=== PATIENT | male | born 1960 | race Caucasian/White ===

== ENCOUNTER 2017-01-01 00:39 | Emergency (ER) | payer MEDICARE ==
[~2017-01-01] VITALS: Ht 177.8 cm; Wt 74.4 kg
[~2017-01-01 00:39] MED LIST: ASPI-991 PO; CLIN300C97 PO; DIVA250T4 PO; METO25TA20 PO; Nitroglycerin SL; SIMV20TA2 PO
[2017-01-01 00:48] VITALS: BP 142/85
== END 2017-01-01 01:15 | disposition home or self-care (01) ==
LOC: ER 00:45
DX: L03.012 Cellulitis of left finger (principal); B19.20 Unspecified viral hepatitis C without hepatic coma; Z95.810 Presence of automatic (implantable) cardiac defibrillator; Z88.2 Allergy status to sulfonamides; Z79.82 Long term (current) use of aspirin
CPT/HCPCS: A4606; A6402; A6403; Z7610

== ENCOUNTER 2017-03-04 03:51 | Emergency (ER) | payer MEDICARE ==
[~2017-03-04] VITALS: Ht 177.8 cm; Wt 72.6 kg
[2017-03-04 04:00] VITALS: BP 134/87
== END 2017-03-04 05:15 | disposition home or self-care (01) ==
LOC: ER 03:54
DX: S00.91XA Abrasion of unspecified part of head, initial encounter (principal); S09.90XA Unspecified injury of head, initial encounter; I10 Essential (primary) hypertension; B19.20 Unspecified viral hepatitis C without hepatic coma; L08.9 Local infection of the skin and subcutaneous tissue, unspecified; F31.9 Bipolar disorder, unspecified; Z95.0 Presence of cardiac pacemaker; Z79.82 Long term (current) use of aspirin; Z88.2 Allergy status to sulfonamides; V29.9XXA Motorcycle rider (driver) (passenger) injured in unspecified traffic accident, initial encounter; Y93.55 Activity, bike riding; Y92.89 Other specified places as the place of occurrence of the external cause; Y99.8 Other external cause status
CPT/HCPCS: A4606; A6402; Z7610

== ENCOUNTER 2017-10-04 17:30 | Emergency (ER) | payer MEDICARE ==
[~2017-10-04] VITALS: Ht 182.9 cm; Wt 90.7 kg
[2017-10-04 17:30] VITALS: BP 142/70
[~2017-10-04 17:30] MED LIST changes: +ASPI-1152 PO; -ASPI-991 PO; +CLIN300C11 PO; -CLIN300C97 PO
[2017-10-04] MEDS ORDERED: TRAMADOL HCL 50 MG TABLET ONE (17:59)
[2017-10-04] MEDS ORDERED: TRAMADOL HCL 50 MG TABLET PO ONE (18:00)
== END 2017-10-04 19:27 | disposition home or self-care (01) ==
LOC: ER 17:33
DX: M54.5 Low back pain (principal); I10 Essential (primary) hypertension; B19.20 Unspecified viral hepatitis C without hepatic coma; F31.9 Bipolar disorder, unspecified; Z95.0 Presence of cardiac pacemaker; Z88.2 Allergy status to sulfonamides; Z79.82 Long term (current) use of aspirin
CPT/HCPCS: 72131-TC; A4606; Z7610

== ENCOUNTER 2017-12-15 00:46 | Inpatient (IN) | payer MEDICARE ==
[~2017-12-15] VITALS: Ht 177.8 cm; Wt 80.3 kg
--- NOTE | 2017-12-15 03:28 | NUR ---
MS/RN NOTES RECEIVED DIRECT ADMISSION PT. FROM [place]. PT. IS AWAKE, ALERT AND ORIENTED X3. BREATHING EVEN AND UNLABORED ON ROOM AIR. NO SOB, RESPIRATORY DISTRESS NOTED AT THIS TIME. PT. COMPLAINING OF NON-RADIATING CHEST PAIN 3/10 WHEN BREATHING. WILL NOTIFY MD AND ADMINISTER MEDICATION ORDERED. VITAL SIGNS STABLE. ORIENTED PT. TO ROOM. PT. WITH LEFT FOREARM 20 GAUGE IV SALINE LOCK PRESENT, PATENT AND INTACT. PT. WITH RIGHT WRIST 20 GAUGE IV SALINE LOCK PRESENT, PATENT AND INTACT. AWAITING ADMISSION ORDERS. BED LOCKED AND IN LOWEST POSITION, SIDE RAILS UP X2, CALL LIGHT WITHIN REACH, WILL CONTINUE TO MONITOR.
--- NOTE | 2017-12-15 04:00 | NUR ---
MS/RN NOTES PT. IS REFUSING FULL BODY CHECK AT THIS TIME STATING " I HAVE NO WOUNDS, IM FINE I JUST WANT TO SLEEP". PT. ALSO REFUSING TO GO THROUGH BELONGINGS OR SIGN BELONGINGS LIST. WILL CONTINUE TO MONITOR.
--- NOTE | 2017-12-15 04:05 | NUR ---
MS/RN NOTES NOTIFIED [employer] FUNDRAISING DIRECTOR RN FORENSIC IVAN PT. COMPLAINING OF CHEST PAIN 3/10 WHEN BREATHING. PER RN FORENSIC IVAN "PT. IS HAVING PAIN DUE TO PNA, I WILL PUT IN ADMITTING ORDERS". WILL CONTINUE TO MONITOR.
[2017-12-15] MEDS ORDERED: IV NS 0.9% 1,000 ML IV PRN (04:11)
[2017-12-15 04:30] VITALS: BP 114/75
[2017-12-15] MEDS ORDERED: MAG HYDROX/AL HYDROX/SIMETH 30 ML UDC PO PRN (04:30)
[2017-12-15] MEDS ORDERED: ZOLPIDEM TARTRATE 5 MG TABLET PO PRN (04:30)
[2017-12-15] MEDS ORDERED: MAGNESIUM HYDROXIDE 30 ML UDC PO PRN (04:30)
[2017-12-15] MEDS ORDERED: ACETAMINOPHEN 325 MG TABLET PO PRN (04:30)
[2017-12-15] MEDS ORDERED: ONDANSETRON HCL/PF 4 MG/2 ML VIAL IVP PRN (04:30)
--- NOTE | 2017-12-15 06:46 | NUR ---
MS/RN NOTES PT. IS LYING IN BED RESTING. BREATHING EVEN AND UNLABORED ON ROOM AIR. NO SOB, RESPIRATORY DISTRESS OR COMPLAINTS OF PAIN NOTED AT THIS TIME. PT. WITH LEFT FOREARM 20 GAUGE IV SALINE LOCK PRESENT, PATENT AND INTACT. PT. WITH RIGHT WRIST 20 GAUGE IV SALINE LOCK PRESENT, PATENT AND INTACT. ALL PT. NEEDS MET. BED LOCKED AND IN LOWEST POSITION, SIDE RAILS UP X2, CALL LIGHT WITHIN REACH, WILL ENDORSE TO DAYSHIFT NURSE FOR CONTINUITY OF CARE.
--- NOTE | 2017-12-15 07:15 | NUR ---
RN NOTES PT IS SITTING UP IN BED, RESTING COMFORTABLY. PT ON RA, RESPIRATIONS ARE EVEN AND UNLABORED. IV ON LFA INTACT AND PATENT. SAFETY MEASURES ARE IN PLACE, CALL LIGHT IS IN REACH. WILL CONTINUE TO MONITOR.
[2017-12-15 07:17] LABS: BASOPHILS % (AUTO) 0.2 % (0.0-2.0); EOSINOPHILS # (AUTO) 0.2 /CMM (0.0-0.7); EOSINOPHILS % (AUTO) 3.5 % (0.0-6.0); HEMATOCRIT 34 % (39-51); HEMOGLOBIN 11.7 g/dL (13.5-17.5); LYMPHOCYTES # (AUTO) 0.4 /CMM (0.8-4.8); LYMPHOCYTES % (AUTO) 7.2 % (20.0-44.0); MEAN CORPUSCULAR HEMOGLOBIN 27 PG (26.0-33.0); MEAN CORPUSCULAR HGB CONC 34 g/dl (31.0-36.0); MEAN CORPUSCULAR VOLUME 78 fL (80-96); MONOCYTES # (AUTO) 0.2 /CMM (0.1-1.30); MONOCYTES % (AUTO) 4.4 % (2.0-12.0); NEUTROPHILS # (AUTO) 4.7 /CMM (1.8-8.9); NEUTROPHILS % (AUTO) 84.7 % (43.0-81.0); PLATELET COUNT (AUTO) 249 /CMM (150-450); RDW COEFFICIENT OF VARIATION 13.2 (11.5-15.0); WHITE BLOOD COUNT (AUTO) 5.6 K/uL (4.3-11.0)
[2017-12-15 07:24] LABS: CALCIUM, SERUM 7.7 mg/dL (8.5-10.1); CREATININE 0.8 mg/dL (0.6-1.3); MAGNESIUM 1.7 mg/dL (1.8-2.4); PHOSPHORUS 3.9 mg/dL (2.5-4.9)
[2017-12-15] MEDS: PANTOPRAZOLE 40 MG TABLET.DR PO SCH (07:30)
[2017-12-15 08:00] VITALS: BP 110/62
[2017-12-15 08:18] VITALS: BP 110/62
[2017-12-15] MEDS ORDERED: AZITHROMYCIN 500 MG in IV D5W 250 ML IV SCH ×2 (09:00→23:00)
[2017-12-15] MEDS ORDERED: BUPR8TAB4 SL (09:19)
[2017-12-15] MEDS: CARVEDILOL 6.25 MG TABLET PO SCH ×2 (09:28→21:00)
[2017-12-15] MEDS: ASPIRIN 81 MG TAB.CHEW PO SCH (09:28)
[2017-12-15] MEDS: Magnesium 1GM/D5W 100ML PREMIX 100 ML IV SCH ×2 (09:28→10:26)
[2017-12-15] MEDS ORDERED: CEFTRIAXONE 1 G in IV NS 0.9% 50 ML IV SCH ×2 (10:00→22:00)
[2017-12-15] MEDS ORDERED: NITROGLYCERIN 0.4 MG/TAB BOTTLE SL PRN (10:00)
[2017-12-15] MEDS: DIVALPROEX SODIUM 250 MG TABLET.DR PO SCH (10:17)
[2017-12-15 10:36] LABS: IRON, SERUM 25 ug/dl (50-175); TOTAL IRON BINDING CAPACITY 229 ug/dl (250-450)
[2017-12-15 10:41] LABS: TROPONIN I < 0.017 ng/mL (0.00-0.056)
[2017-12-15 10:50] LABS: FERRITIN 254 ng/mL (8-388); THYROID STIMULATING HORMONE 1.106 uIU/mL (0.358-3.74)
[2017-12-15] MEDS: HYDROCODONE/APAP 5/325MG 1 EACH TABLET PO PRN (13:43)
--- NOTE | 2017-12-15 15:40 | NUR ---
RN NOTES [employer] CAME TO CHECK PACEMAKER DEVICE ON PT. WRONG COMPANY FOR DEVICE. WAS INSTRUCTED TO PLACE PT ON TELE MONITOR AND PLACE MAGNET ON DEVICE FROM ICU TO CHECK RATE IN ORDER TO FIND OUT WHICH COMPANY IS RESPONSIBLE FOR THE PACEMAKER. [email or web address] STATED SHE WOULD INFORM DR. CRABTREE. DR. CEE INFORMED BY RN.
[2017-12-15 16:00] VITALS: BP 103/68
--- NOTE | 2017-12-15 16:15 | NUR ---
RN NOTES PT PACEMAKER WAS CHECKED WITH PACEMAKER MAGNET. WITH MAGNET PLACED ON PT, RATE IS 100.
[2017-12-15] MEDS: oxyCODONE IR immediate release 5 MG PO PRN (18:34)
--- NOTE | 2017-12-15 18:48 | NUR ---
RN NOTES PT IS LAYING DOWN IN BED, RESTING COMFORTABLY. PT ON RA, RESPIRATIONS ARE EVEN AND UNLABORED. IV ON RFA INTACT AND SL, PT DOES NOT WANT TO BE CONNECTED TO FLUIDS AT THIS TIME. OXY IR GIVEN FOR PAIN MANAGEMENT. SAFETY MEASURES ARE IN PLACE, CALL LIGHT IS IN REACH. WILL ENDORSE TO MACHINE MOVER RN FOR CONTINUITY OF CARE.
--- NOTE | 2017-12-15 19:25 | NUR ---
RN NOTES RECEIVED PT ASLEEP, HOB ELEVATED, ON ROOM AIR AND TOLERATED WELL . PT APPEARS COMFORTABLE IN BED, NO SIGNS OF DISTRESS AND DISCOMFORT NOTED. IV ACCESS ON RIGHT FOREARM INTACT, DISCONNECTED TI IVF PER REPORT PT IS REFUSED. SAFETY MEASURES AND FALL PRECAUTION IN PLACE. WILL CONTINUE TO MONITOR PT.
[2017-12-15 20:00] VITALS: BP 91/56
[2017-12-15 22:00] VITALS: BP 97/56
[2017-12-15] MEDS ORDERED: SIMVASTATIN 20 MG TABLET PO SCH (22:00)
[2017-12-16] MEDS: oxyCODONE IR immediate release 5 MG PO PRN (03:38)
--- NOTE | 2017-12-16 06:20 | NUR ---
RN NOTES PT SLEPT WELL OVERNIGHT, VITAL SIGNS STABLE, AFEBRILE, ON ROOM AIR AND TOLERATED WELL. CURRENT DIET TOLERATED WELL, NO EPISODE OF NAUSEA AND VOMITING. KEPT PAIN AT TOLERABLE LEVEL. ALL NEEDS ATTENDED. SAFETY MEASURES AND FALL PRECAUTION OBSERVED. WILL ENDORSE TO MORNING RN FOR CONTINUITY OF CARE.
--- NOTE | 2017-12-16 07:30 | NUR ---
PT RECEIVED RESTING COMFORTABLY IN BED. NO S/S OR C/O PAIN OR DISTRESS NOTED. SIDE RAILS UP X2, CALL LIGHT LEFT WITHIN REACH. WILL CONTINUE PLAN OF CARE.
[2017-12-16 08:00] VITALS: BP 112/57
[2017-12-16] MEDS ORDERED: ASPIRIN EC 81 MG TABLET.DR PO SCH (09:00)
[2017-12-16] MEDS: ASPIRIN 81 MG TAB.CHEW PO SCH (09:18)
[2017-12-16] MEDS: PANTOPRAZOLE 40 MG TABLET.DR PO SCH (09:18)
[2017-12-16] MEDS: DIVALPROEX SODIUM 250 MG TABLET.DR PO SCH (09:18)
[2017-12-16 09:19] VITALS: BP 112/57
[2017-12-16] MEDS: CARVEDILOL 6.25 MG TABLET PO SCH (09:19)
[2017-12-16] MEDS: HYDROCODONE/APAP 5/325MG 1 EACH TABLET PO PRN (09:19)
--- NOTE | 2017-12-16 12:55 | NUR ---
AT BEDSIDE DR DESIR
--- NOTE | 2017-12-16 12:58 | NUR ---
CALLED DR CEE NOTIFIED OF PSYCH CLEARANCE.
--- NOTE | 2017-12-16 13:00 | NUR ---
AMA PT STATES HE WANTS TO LEAVE THE HOSPITAL AGAINST MEDICAL ADVICE (AMA). PATIENT ENCOURAGED TO STAY FOR FURTHER TREATMENT/STABILIZATION. DR CEE NOTIFIED OF PATIENT'S WISHES. PATIENT ADVISED OF RISKS AND BENEFITS OF LEAVING AMA. PATIENT VERBALIZED UNDERSTANDING. PATIENT ENCOURAGED TO RETURN TO ER IF SYMPTOMS DO NOT IMPROVE OR WORSEN.
[2017-12-16] MEDS ORDERED: LACTOBACILLUS RHAMNOSUS GG 1 EACH CAP.SPRINK PO SCH (17:00)
== END 2017-12-16 13:00 | disposition left against medical advice (07) | DRG 871 ==
LOC: TELE 03:26 → MED 06:23
PROVIDERS: ADMIT Nurse Practitioner Acute Care; ATTEND Nurse Practitioner Acute Care
DX: A41.9 Sepsis, unspecified organism (principal); J15.9 Unspecified bacterial pneumonia; F11.20 Opioid dependence, uncomplicated; E83.42 Hypomagnesemia; E78.5 Hyperlipidemia, unspecified; D63.8 Anemia in other chronic diseases classified elsewhere; I25.10 Atherosclerotic heart disease of native coronary artery without angina pectoris; Z95.810 Presence of automatic (implantable) cardiac defibrillator; F17.210 Nicotine dependence, cigarettes, uncomplicated; F19.11 Other psychoactive substance abuse, in remission; R55 Syncope and collapse; F39 Unspecified mood [affective] disorder
CPT/HCPCS: 36415; 80048-TC; 80061-TC; 82306; 82728-TC; 83540-TC; 83735-TC; 84100-TC; 84439-TC; 84443-TC; 84484-TC; 85025-TC; 87081-TC; 93307-TC; A4216; J0456; J0696; J3475; J7030; J7060; Z7610

== ENCOUNTER 2018-02-02 00:02 | Emergency (ER) | payer MEDICARE ==
[~2018-02-02] VITALS: Ht 172.7 cm; Wt 74.8 kg
[~2018-02-02 00:02] MED LIST changes: +BUPR8TAB4 SL; -CLIN300C11 PO
[2018-02-02 01:05] VITALS: BP 127/57
[2018-02-02] MEDS ORDERED: KETOROLAC TROMETHAMINE INJ 60 MG/2 ML VIAL IM ONE (01:35)
[2018-02-02] MEDS ORDERED: CYCLOBENZAPRINE 10 MG TABLET ONE (01:36)
[2018-02-02] MEDS ORDERED: GABAPENTIN 100 MG CAPSULE ONE ×2 (01:36→01:40)
[2018-02-02] MEDS: CYCLOBENZAPRINE 10 MG TABLET PO ONE (01:44)
[2018-02-02] MEDS: KETOROLAC TROMETHAMINE INJ 60 MG/2 ML VIAL IM ONE (01:44)
[2018-02-02] MEDS: GABAPENTIN 100 MG CAPSULE PO ONE (01:44)
[2018-02-02] MEDS ORDERED: ONDANSETRON 4 MG TAB.RAPDIS ONE (03:02)
[2018-02-02] MEDS ORDERED: oxyCODONE/APAP (5/325 MG) 1 UDTAB TABLET ONE (03:02)
[2018-02-02] MEDS: ONDANSETRON 4 MG TAB.RAPDIS SL ONE (03:08)
[2018-02-02] MEDS: oxyCODONE/APAP (5/325 MG) 1 UDTAB TABLET PO ONE (03:12)
--- NOTE | 2018-02-02 03:13 | NUR ---
X2 5/325 PERCOCET GIVEN. POPCORN ATTENDANT MADE AWARE THAT X1 MORE NEEDED PER MD HALEY ORDER.
[2018-02-02] MEDS: oxyCODONE/APAP (5/325 MG) 1 UDTAB TABLET ONE (03:22)
== END 2018-02-02 05:05 | disposition home or self-care (01) ==
LOC: ER 00:04
DX: G89.29 Other chronic pain (principal); M54.5 Low back pain; G40.909 Epilepsy, unspecified, not intractable, without status epilepticus; I10 Essential (primary) hypertension; F32.9 Major depressive disorder, single episode, unspecified; F41.9 Anxiety disorder, unspecified; Z86.19 Personal history of other infectious and parasitic diseases; Z95.0 Presence of cardiac pacemaker; Z88.2 Allergy status to sulfonamides; Z79.82 Long term (current) use of aspirin
CPT/HCPCS: 72131-TC; A4606; J1885; Q0162; Z7610

== ENCOUNTER 2018-02-24 17:05 | Emergency (ER) | payer MEDICARE ==
[~2018-02-24] VITALS: Ht 175.3 cm; Wt 74.8 kg
[2018-02-24] MEDS ORDERED: IV NS 0.9% 1,000 ML BAG IV ONE (17:30)
[2018-02-24] MEDS ORDERED: VANCOMYCIN 1 GM in IV D5W 250 ML IV ONE (17:30)
[2018-02-24] MEDS ORDERED: MORPHINE SULFATE INJ 2 MG/ML DISP.SYRIN IV ONE ×2 (17:30→20:00)
[2018-02-24] MEDS ORDERED: PIPERACILLIN /TAZOBACTAM 3.375 G in IV D5W 50 ML IV ONE (17:30)
[2018-02-24] MEDS ORDERED: ONDANSETRON HCL/PF 4 MG/2 ML VIAL IVP ONE (17:30)
--- NOTE | 2018-02-24 17:30 | NUR ---
PT CAME IN WITH C/O ABSCESS TO RUE x 1 WEEK. Hx OF IVDU. VSS. SEEN BY TANKAGE GRINDER FOR EVAL. SAFETY AND COMFORT MEASURES PROVIDED. WILL MONITOR.
[2018-02-24 17:47] LABS: BASOPHILS # (AUTO) 0.1 /CMM (0.0-0.2); BASOPHILS % (AUTO) 0.6 % (0.0-2.0); HEMATOCRIT 33 % (39-51); HEMOGLOBIN 11.3 g/dL (13.5-17.5); LYMPHOCYTES # (AUTO) 1.5 /CMM (0.8-4.8); LYMPHOCYTES % (AUTO) 16.6 % (20.0-44.0); MEAN CORPUSCULAR HGB CONC 34 g/dl (31.0-36.0); MEAN CORPUSCULAR VOLUME 76 fL (80-96); MONOCYTES # (AUTO) 0.7 /CMM (0.1-1.30); MONOCYTES % (AUTO) 8.2 % (2.0-12.0); NEUTROPHILS # (AUTO) 6.7 /CMM (1.8-8.9); NEUTROPHILS % (AUTO) 73.6 % (43.0-81.0); PLATELET COUNT (AUTO) 328 /CMM (150-450); RDW COEFFICIENT OF VARIATION 13.9 (11.5-15.0); RED BLOOD CELL COUNT(AUTO) 4.38 MIL/uL (4.5-6.0); WHITE BLOOD COUNT (AUTO) 9.1 K/uL (4.3-11.0)
[2018-02-24] MEDS ORDERED: MORPHINE SULFATE INJ 4 MG/ML DISP.SYRIN ONE ×2 (17:54→19:58)
[2018-02-24] MEDS ORDERED: ONDANSETRON HCL/PF 4 MG/2 ML VIAL ONE (17:54)
[2018-02-24] MEDS ORDERED: LIDOCAINE 1% INJ 50 ML MDV IJ ONE (18:00)
--- NOTE | 2018-02-24 18:00 | NUR ---
IV ACCESS STARTED. MEDICATED ORDERED.
[2018-02-24 18:08] LABS: INR 0.97 (0.85-1.15)
[2018-02-24] MEDS ORDERED: ASPI-1169 PO (18:08)
[2018-02-24] MEDS ORDERED: LIDOCAINE 2% 20 ML MDV ONE (18:19)
[2018-02-24 18:24] LABS: TROPONIN I < 0.017 ng/mL (0.00-0.056)
[2018-02-24 18:25] LABS: CALCIUM, SERUM 8.7 mg/dL (8.5-10.1); CARBON DIOXIDE 28 mmol/L (21-32); CHLORIDE 99 mmol/L (98-107); CREATININE 0.7 mg/dL (0.6-1.3); GLUCOSE 92 mg/dL (74-106); SODIUM SERUM 134 mmol/L (136-145); UREA NITROGEN, BLOOD 15 mg/dL (7-18)
[2018-02-24 18:30] LABS: ALANINE AMINOTRANSFERASE 49 U/L (12-78); ALBUMIN 3.1 g/dL (3.4-5.0); ALKALINE PHOSPHATASE 98 U/L (46-116); ASPARTATE AMINOTRANSFERASE 35 U/L (15-37); BILIRUBIN,DIRECT 0.1 mg/dL (0.0-0.2); BILIRUBIN,TOTAL 0.5 mg/dL (0.2-1.0)
--- NOTE | 2018-02-24 18:40 | NUR ---
PT UNABLE TO GIVE URINE SAMPLE.
--- NOTE | 2018-02-24 19:14 | NUR ---
GAS REFRIGERATOR SERVICER AT BS FOR WOUND PROCEDURE.
--- NOTE | 2018-02-24 19:34 | NUR ---
US TECH AT BS.
--- NOTE | 2018-02-24 19:45 | NUR ---
DRESSINGS APPLIED ON RUE.
--- NOTE | 2018-02-24 20:03 | NUR ---
IV removed. Catheter intact and site benign. Pressure and 4x4 applied to site. No bleeding noted.
--- NOTE | 2018-02-24 20:03 | NUR ---
Patient discharged to home in stable condition. Written and verbal after care instructions given. Patient verbalizes understanding of instruction.
[2018-02-24 20:04] VITALS: BP 136/85
== END 2018-02-24 20:05 | disposition home or self-care (01) ==
LOC: ER 17:11
DX: L02.413 Cutaneous abscess of right upper limb (principal); L03.113 Cellulitis of right upper limb; R11.2 Nausea with vomiting, unspecified; R56.9 Unspecified convulsions; I10 Essential (primary) hypertension; F41.9 Anxiety disorder, unspecified; F32.9 Major depressive disorder, single episode, unspecified; Z86.19 Personal history of other infectious and parasitic diseases; Z95.0 Presence of cardiac pacemaker; Z88.2 Allergy status to sulfonamides; Z79.82 Long term (current) use of aspirin
CPT/HCPCS: 10060; 36415; 71045; 80048; 80076; 83605; 84484; 85025; 85730; 87040 ×2; 87070; 87077; 93005; 93971; 96365; 96366; 96368; 96375; 96376; 99285; A4606; A6402; A6403; A6407; J2270 ×2; J2405; J2543; J3370; J3490; J7030; J7060 ×2; Z7610

== ENCOUNTER 2018-10-10 02:44 | Emergency (ER) | payer MEDICARE ==
[~2018-10-10] VITALS: Ht 177.8 cm; Wt 81.6 kg
[~2018-10-10 02:44] MED LIST changes: -ASPI-1152 PO; +ASPI-1169 PO; -BUPR8TAB4 SL; -METO25TA20 PO; -Nitroglycerin SL; -SIMV20TA2 PO
--- NOTE | 2018-10-10 03:07 | NUR ---
PT BIB HIS WITH A C/O FEVER AND "L5" BACK PAIN. PT IS ALSO C/O GENERALIZED BODY ACHES. PT DID NOT TAKE ANYTHING FOR THE FEVER OR FOR THE PAIN. PT'S AND DAUGHTER ARE AT THE BEDSIDE. PT WAS NOT ABLE TO WALK INTO THE ER. PT WAS TRIAGED AND TAKEN TO BED #11 VIA . PT IS ABLE TO MOVE BLE. PT APPEARS TIRED. PT HAS HIS BILATERAL LE CROSSED AT THE ANKLE.
--- NOTE | 2018-10-10 03:09 | NUR ---
DR. ADAM IS AT THE BEDSIDE.
[2018-10-10] MEDS ORDERED: HYDROCODONE/APAP 5/325MG 1 EACH TABLET ONE (03:15)
[2018-10-10] MEDS ORDERED: IBUPROFEN 600 MG TABLET PO ONE ×2 (03:16→03:30)
[2018-10-10 03:29] LABS: BASOPHILS # (AUTO) 0.1 /CMM (0.0-0.2); BASOPHILS % (AUTO) 0.4 % (0.0-2.0); EOSINOPHILS % (AUTO) 0.1 % (0.0-6.0); HEMATOCRIT 38 % (39-51); HEMOGLOBIN 12.9 g/dL (13.5-17.5); LYMPHOCYTES # (AUTO) 1.7 /CMM (0.8-4.8); LYMPHOCYTES % (AUTO) 11.7 % (20.0-44.0); MEAN CORPUSCULAR HGB CONC 34 g/dl (31.0-36.0); MEAN CORPUSCULAR VOLUME 78 fL (80-96); MONOCYTES # (AUTO) 1.1 /CMM (0.1-1.30); MONOCYTES % (AUTO) 7.7 % (2.0-12.0); NEUTROPHILS # (AUTO) 11.3 /CMM (1.8-8.9); NEUTROPHILS % (AUTO) 80.1 % (43.0-81.0); PLATELET COUNT (AUTO) 335 /CMM (150-450); WHITE BLOOD COUNT (AUTO) 14.2 K/uL (4.3-11.0)
[2018-10-10] MEDS ORDERED: IV NS 0.9% 1,000 ML BAG IV ONE ×2 (03:30→04:30)
[2018-10-10] MEDS ORDERED: HYDROCODONE/APAP 5/325MG 1 EACH TABLET PO ONE (03:30)
--- NOTE | 2018-10-10 03:30 | NUR ---
18G IV STARTED IN LT HAND. BLOOD DRAWN AND BLOOD CULTURES X 2 DRAWN AND SENT TO LAB. PT REC'D IVF ORDERED.
--- NOTE | 2018-10-10 03:44 | NUR ---
PT APPEARS TO BE SLEEPING SOUNDLY. NO S/S OF PAIN AT THIS TIME.
[2018-10-10 03:48] LABS: ALBUMIN 3.5 g/dL (3.4-5.0); BILIRUBIN,DIRECT 0.1 mg/dL (0.0-0.2); BILIRUBIN,TOTAL 0.6 mg/dL (0.2-1.0); CREATININE 0.8 mg/dL (0.6-1.3); POTASSIUM 3.7 mmol/L (3.5-5.1); TOTAL PROTEIN, SERUM 7.7 g/dL (6.4-8.2)
--- NOTE | 2018-10-10 04:00 | NUR ---
XRAY IN PROGRESS AT THE BEDSIDE.
--- NOTE | 2018-10-10 04:10 | NUR ---
PT REC'D IVF ORDERED.
--- NOTE | 2018-10-10 04:35 | NUR ---
PT AMBULATED TO THE BATHROOM TO GIVE A URINE SAMPLE.
--- NOTE | 2018-10-10 04:40 | NUR ---
URINE SAMPLE SENT TO LAB. PT WAS RECONNECTED TO THE MONITOR AND CONTINUOUS PULSE OX. PT WAS ALSO RECONNECTED TO THE IVF.
[2018-10-10 04:56] LABS: APPEARANCE,URINE CLEAR (CLEAR); BILIRUBIN,URINE NEGATIVE (NEGATIVE); BLOOD, URINE 1+ Ery/uL (NEGATIVE); COLOR,URINE YELLOW (YELLOW); KETONES,URINE NEGATIVE (NEGATIVE); LEUKOCYTE ESTERASE ,URINE NEGATIVE (NEGATIVE); NITRITE, URINE NEGATIVE (NEGATIVE); PROTEIN,URINE NEGATIVE (NEGATIVE); UGLUCOSE NEGATIVE (NEGATIVE)
[2018-10-10 05:10] LABS: BACTERIA,URINE None seen /HPF (None Seen); SQUAMOUS EPITHELIAL CELL,UR Few /HPF (None Seen); WBC,URINE 0-2 /HPF (0-3)
--- NOTE | 2018-10-10 05:40 | NUR ---
WENT TO D/C PT. PT HAD LEFT IV PULLED OUT. PT LEFT A BLACK JACKET ON THE BED AND LEFT WITHOUT RX AND ACI. CALLED PT AND SPOKE TO HIM. PT HUNG UP. NOTIFIED.
[2018-10-10 05:48] VITALS: BP 104/60
== END 2018-10-10 05:50 | disposition home or self-care (01) ==
LOC: ER 02:51
DX: B34.9 Viral infection, unspecified (principal); G89.29 Other chronic pain; M54.41 Lumbago with sciatica, right side; C90.01 Multiple myeloma in remission; R56.9 Unspecified convulsions; I10 Essential (primary) hypertension; F32.9 Major depressive disorder, single episode, unspecified; F41.9 Anxiety disorder, unspecified; F10.10 Alcohol abuse, uncomplicated; Y90.9 Presence of alcohol in blood, level not specified; Z85.830 Personal history of malignant neoplasm of bone; Z95.0 Presence of cardiac pacemaker; Z86.19 Personal history of other infectious and parasitic diseases; Z98.890 Other specified postprocedural states; Z88.2 Allergy status to sulfonamides; Z79.82 Long term (current) use of aspirin
CPT/HCPCS: 36415; 71045; 80048; 80076; 81001; 83605; 85025; 87040 ×2; 87086; 87804 ×2; 99284; A4606; J7030 ×2; 81000-TC; 87400

== ENCOUNTER 2018-12-29 05:47 | Emergency (ER) | payer MEDICARE ==
[~2018-12-29] VITALS: Ht 177.8 cm; Wt 74.8 kg
--- NOTE | 2018-12-29 05:57 | NUR ---
PT BIBSELF FROM HOME C/C CHEST DISCOMFORT NR X1 HR S/P HAVING ARGUMENT WITH GF -SOB. -N/V. -COUGH. AFEBRILE. STATES "PACEMAKER IS FIRING CONSTANTLY". NAD NOTED. RESP EVEN AND UNLABORED. PT ON MONITOR IN BED 9. WILL CONTINUE TO MONITOR.
[2018-12-29 05:58] VITALS: BP 132/81
--- NOTE | 2018-12-29 05:58 | NUR ---
TECH AT BEDSIDE FOR EKG
[2018-12-29] MEDS ORDERED: IV NS 0.9% 500 ML BAG IV ONE (06:30)
--- NOTE | 2018-12-29 06:37 | NUR ---
PT REFUSED TO SIGN AMA. PT WAS INFORMED OF THE RISKS.
--- NOTE | 2018-12-29 06:39 | NUR ---
Patient eloped from facility. ER MD notified.
== END 2018-12-29 06:42 | disposition left against medical advice (07) ==
LOC: ER 05:47
DX: R07.89 Other chest pain (principal); I10 Essential (primary) hypertension; F32.9 Major depressive disorder, single episode, unspecified; F41.9 Anxiety disorder, unspecified; Z95.0 Presence of cardiac pacemaker; Z86.19 Personal history of other infectious and parasitic diseases; Z88.2 Allergy status to sulfonamides; Z60.2 Problems related to living alone; Z79.82 Long term (current) use of aspirin; Z79.899 Other long term (current) drug therapy; Z85.830 Personal history of malignant neoplasm of bone
CPT/HCPCS: 71045-TC

== ENCOUNTER 2019-07-05 06:36 | Emergency (ER) | payer MEDICARE ==
[~2019-07-05] VITALS: Ht 177.8 cm; Wt 72.6 kg
--- NOTE | 2019-07-05 06:40 | NUR ---
PT BIBFRIEND C/O LEFT SIDED CHEST PAIN X3 DAYS, PROGRESSIVELY GETTING WORSE. PT ALSO C/O PRODUCTIVE COUGH, GREEN SPUTUM, AND R LOWER EXTREMITY PAIN AND SWELLING. DENIES RECENT TRAUMA, SOB, HEADACHE, NAUSEA, DIZZINESS. PT AAOX4. RESPIRATIONS EVEN AND UNLABORED. SKIN INTACT. VITAL SIGNS STABLE. NO ACUTE DISTRESS NOTED AT THIS TIME. PLACED IN GOWN AND ON CONTINUOUS MANAGER GRANT, WILL CONTINUE TO MONITOR
--- NOTE | 2019-07-05 06:46 | NUR ---
MD AT BEDSIDE FOR EVALUATION
--- NOTE | 2019-07-05 06:50 | NUR ---
IV INITIATED R AC 18G. LABS DRAWN FROM SITE AND SENT TO LAB. IV INTACT AND PATENT, PLACED ON SALINE LOCK
[2019-07-05 07:05] LABS: BASOPHILS % (AUTO) 0.5 % (0.0-2.0); EOSINOPHILS % (AUTO) 3.3 % (0.0-6.0); HEMATOCRIT 37 % (39-51); HEMOGLOBIN 12.3 g/dL (13.5-17.5); LYMPHOCYTES # (AUTO) 1.9 /CMM (0.8-4.8); LYMPHOCYTES % (AUTO) 24.9 % (20.0-44.0); MEAN CORPUSCULAR HGB CONC 34 g/dl (31.0-36.0); MEAN CORPUSCULAR VOLUME 78 fL (80-96); MONOCYTES # (AUTO) 0.7 /CMM (0.1-1.30); MONOCYTES % (AUTO) 8.3 % (2.0-12.0); NEUTROPHILS # (AUTO) 4.9 /CMM (1.8-8.9); PLATELET COUNT (AUTO) 306 /CMM (150-450); RED BLOOD CELL COUNT(AUTO) 4.72 MIL/uL (4.5-6.0); WHITE BLOOD COUNT (AUTO) 7.8 K/uL (4.3-11.0)
--- NOTE | 2019-07-05 07:05 | NUR ---
RADIOLOGY AT BEDSIDE FOR XRAY
[2019-07-05 07:07] LABS: CALCIUM, SERUM 8.7 mg/dL (8.5-10.1); CARBON DIOXIDE 29 mmol/L (21-32); CHLORIDE 102 mmol/L (98-107); CREATININE 0.9 mg/dL (0.6-1.3); GLUCOSE 103 mg/dL (74-106); POTASSIUM 3.8 mmol/L (3.5-5.1); SODIUM SERUM 140 mmol/L (136-145); UREA NITROGEN, BLOOD 18 mg/dL (7-18)
--- NOTE | 2019-07-05 07:20 | NUR ---
operating room technologist at bedside
--- NOTE | 2019-07-05 08:54 | NUR ---
Patient signed AMA form. made aware.
[2019-07-05 09:13] VITALS: BP 111/71
--- NOTE | 2019-07-05 09:15 | NUR ---
Patient does not wish to proceed with medical care recommended by Dr. Zazueta. Patient given information related to possible complications, up to and including , which could occur as a result of leaving the hospital at this time. Patient verbalizes understanding of risks involved due to leaving against medical advice. Patient has signed AMA form.
== END 2019-07-05 09:14 | disposition left against medical advice (07) ==
LOC: ER 06:42
DX: R07.89 Other chest pain (principal); R22.43 Localized swelling, mass and lump, lower limb, bilateral; I10 Essential (primary) hypertension; F32.9 Major depressive disorder, single episode, unspecified; F41.9 Anxiety disorder, unspecified; F17.200 Nicotine dependence, unspecified, uncomplicated; Z95.0 Presence of cardiac pacemaker; Z98.890 Other specified postprocedural states; Z86.19 Personal history of other infectious and parasitic diseases; Z88.2 Allergy status to sulfonamides; Z79.82 Long term (current) use of aspirin; Z79.899 Other long term (current) drug therapy
CPT/HCPCS: 36415; 71045-TC; 80048-TC; 84484-TC; 85025-TC; 93970-TC

== ENCOUNTER 2020-01-28 19:19 | Emergency (ER) | payer MEDICARE, OTHER ==
[~2020-01-28] VITALS: Ht 177.8 cm; Wt 74.8 kg
--- NOTE | 2020-01-28 19:20 | NUR ---
PT BIBSELF TO THE ED C/O GENERALIZED ABDOMINAL PAIN +N/V, HEMATAEMESIS 4-6 WEEKS. PT STATES "I HAVE CANCER AND I THINK IT'S BACK AGAIN. SYMPTOMS ARE SIMILAR". PT AAOX4, RESPIRATIONS EVEN AND UNLABORED ON RA W/ NAD NOTED. PT CONNECTED TO THE PHYSICS TUTOR AND POX.
[2020-01-28] MEDS ORDERED: MORPHINE SULFATE INJ 4 MG/ML DISP.SYRIN ONE (19:43)
[2020-01-28] MEDS ORDERED: ONDANSETRON HCL/PF 4 MG/2 ML VIAL ONE (19:43)
[2020-01-28] MEDS ORDERED: ONDANSETRON HCL/PF 4 MG/2 ML VIAL IVP ONE (20:00)
[2020-01-28] MEDS ORDERED: IV NS 0.9% 1,000 ML BAG IV ONE (20:00)
[2020-01-28] MEDS ORDERED: MORPHINE SULFATE INJ 2 MG/ML DISP.SYRIN IV ONE (20:00)
--- NOTE | 2020-01-28 20:07 | NUR ---
BLOOD [id number] AND SENT TO LAB
--- NOTE | 2020-01-28 20:08 | NUR ---
PT UNABLE TO PROVIDE URINE AT THIS TIME
[2020-01-28 20:09] LABS: BASOPHILS % (AUTO) 0.7 % (0.0-2.0); EOSINOPHILS % (AUTO) 1.5 % (0.0-6.0); HEMATOCRIT 37 % (39-51); HEMOGLOBIN 12.2 g/dL (13.5-17.5); LYMPHOCYTES % (AUTO) 28.9 % (20.0-44.0); MEAN CORPUSCULAR HGB CONC 33 g/dl (31.0-36.0); MEAN CORPUSCULAR VOLUME 76 fL (80-96); MONOCYTES # (AUTO) 0.6 /CMM (0.1-1.30); MONOCYTES % (AUTO) 8.1 % (2.0-12.0); NEUTROPHILS # (AUTO) 4.2 /CMM (1.8-8.9); NEUTROPHILS % (AUTO) 60.8 % (43.0-81.0); PLATELET COUNT (AUTO) 392 /CMM (150-450); RED BLOOD CELL COUNT(AUTO) 4.84 MIL/uL (4.5-6.0); WHITE BLOOD COUNT (AUTO) 6.8 K/uL (4.3-11.0)
[2020-01-28 20:17] LABS: CALCIUM, SERUM 9.1 mg/dL (8.5-10.1); CREATININE 1.1 mg/dL (0.6-1.3)
[2020-01-28 20:23] LABS: ALBUMIN 3.9 g/dL (3.4-5.0); BILIRUBIN,DIRECT 0.1 mg/dL (0.0-0.2); BILIRUBIN,TOTAL 0.4 mg/dL (0.2-1.0); TOTAL PROTEIN, SERUM 8.1 g/dL (6.4-8.2)
[2020-01-28] MEDS ORDERED: IOHEXOL-300 100 ML VIAL IV ONE (20:29)
[2020-01-28] MEDS ORDERED: CT SWABBABLE VALVE TRANS SET 1 EA INFUS.SET MC ONE (20:30)
[2020-01-28] MEDS ORDERED: IV NS 0.9% 250 ML IV ONE (20:30)
--- NOTE | 2020-01-28 20:31 | NUR ---
PT REFUSED CT SCAN. PT STATES HE WANTS TO GO HOME. MADE AWARE
--- NOTE | 2020-01-28 20:42 | NUR ---
Patient discharged to home in stable condition. Written and verbal after care instructions given. Patient verbalizes understanding of instruction.
[2020-01-28 20:43] VITALS: BP 127/84
== END 2020-01-28 20:43 | disposition home or self-care (01) ==
LOC: ER 19:25
DX: R10.84 Generalized abdominal pain (principal); F11.10 Opioid abuse, uncomplicated; R11.10 Vomiting, unspecified; F19.10 Other psychoactive substance abuse, uncomplicated; R56.9 Unspecified convulsions; I10 Essential (primary) hypertension; Z85.830 Personal history of malignant neoplasm of bone; Z95.0 Presence of cardiac pacemaker; Z98.890 Other specified postprocedural states; Z88.2 Allergy status to sulfonamides; Z79.82 Long term (current) use of aspirin; Z79.899 Other long term (current) drug therapy
CPT/HCPCS: 36415; 80048; 80076; 83690; 84484; 85025; 85730; 93005; 96361; 96374; 96375; 99284; J2270; J2405; J7050; Q9967

== ENCOUNTER 2021-05-07 20:38 | Emergency (ER) | payer MEDICARE, OTHER ==
[~2021-05-07] VITALS: Ht 177.8 cm; Wt 95.3 kg
--- NOTE | 2021-05-07 20:45 | NUR ---
PT BIBSELF C/O CHEST PAIN "FOR A FEW MONTHS" BUT WORSE TODAY SINCE 1300. ALSO C/O HEADACHE. DENIES NAUSEA, VOMITTING, SOB. PT AAOX4. AMBULATORY WITH STEADY GAIT. RESPIRATIONS EVEN AND UNLABORED. PLACED ON CONTINUOUS TRAINING PROFESSIONAL AND PULSE OX, WILL CONTINUE TO MONITOR
--- NOTE | 2021-05-07 21:00 | NUR ---
IV INITIATED R FOREARM 18G. LABS DRAWN FROM SITE. JUNIOR ELECTRICAL ENGINEER AT BEDSIDE FOR COLLECTION. IV INTACT AND PATENT, PLACED ON SALINE LOCK
--- NOTE | 2021-05-07 21:02 | NUR ---
RADIOLOGY AT BEDSIDE FOR CXR
[2021-05-07 21:03] LABS: BASOPHILS % (AUTO) 0.6 % (0.0-2.0); EOSINOPHILS % (AUTO) 4.6 % (0.0-6.0); HEMATOCRIT 34 % (39-51); HEMOGLOBIN 11.3 g/dL (13.5-17.5); LYMPHOCYTES # (AUTO) 1.5 K/uL (0.8-4.8); LYMPHOCYTES % (AUTO) 21.5 % (20.0-44.0); MEAN CORPUSCULAR HGB CONC 34 g/dl (31.0-36.0); MEAN CORPUSCULAR VOLUME 74 fL (80-96); MONOCYTES # (AUTO) 0.5 K/uL (0.1-1.30); MONOCYTES % (AUTO) 7.4 % (2.0-12.0); NEUTROPHILS # (AUTO) 4.8 K/uL (1.8-8.9); NEUTROPHILS % (AUTO) 65.9 % (43.0-81.0); PLATELET COUNT (AUTO) 367 K/uL (150-450); RED BLOOD CELL COUNT(AUTO) 4.55 MIL/uL (4.5-6.0); WHITE BLOOD COUNT (AUTO) 7.2 K/uL (4.3-11.0)
[2021-05-07 21:20] LABS: CALCIUM, SERUM 8.7 mg/dL (8.5-10.1); CARBON DIOXIDE 31 mmol/L (21-32); CHLORIDE 101 mmol/L (98-107); CREATININE 1.1 mg/dL (0.6-1.3); GLUCOSE 121 mg/dL (74-106); POTASSIUM 4.2 mmol/L (3.5-5.1); SODIUM SERUM 139 mmol/L (136-145); UREA NITROGEN, BLOOD 16 mg/dL (7-18)
[2021-05-07] MEDS ORDERED: IBUP-1957 PO (21:37)
[2021-05-07] MEDS ORDERED: MORPHINE SULFATE INJ 4 MG/ML DISP.SYRIN ONE (21:47)
[2021-05-07] MEDS ORDERED: KETOROLAC TROMETHAMINE INJ 30 MG/ML VIAL ONE (21:47)
[2021-05-07 21:51] LABS: LYMPHOCYTES % (MANUAL) 22 % (16-48); MONOCYTES % (MANUAL) 5 % (0-11.0); NEUTROPHILS % (MANUAL) 65 (42-76)
[2021-05-07 21:52] LABS: EOSINOPHILS % (MANUAL) 8 % (0-4)
[2021-05-07 21:56] VITALS: BP 134/75
--- NOTE | 2021-05-07 21:56 | NUR ---
IV removed. Catheter intact and site benign. Pressure and 4x4 applied to site. No bleeding noted. Patient discharged to home in stable condition. Written and verbal after care instructions given. Patient verbalizes understanding of instruction and RX. Pt ambulated out of ED. VSS.
[2021-05-07] MEDS ORDERED: MORPHINE SULFATE INJ 2 MG/ML DISP.SYRIN IM ONE (22:00)
[2021-05-07] MEDS ORDERED: KETOROLAC TROMETHAMINE INJ 60 MG/2 ML VIAL IM ONE (22:00)
== END 2021-05-07 21:56 | disposition home or self-care (01) ==
LOC: ER 20:42
DX: R07.89 Other chest pain (principal); F17.200 Nicotine dependence, unspecified, uncomplicated; I10 Essential (primary) hypertension; F32.9 Major depressive disorder, single episode, unspecified; F41.9 Anxiety disorder, unspecified; Z98.890 Other specified postprocedural states; Z88.2 Allergy status to sulfonamides; Z60.2 Problems related to living alone; Z79.82 Long term (current) use of aspirin; Z79.899 Other long term (current) drug therapy
CPT/HCPCS: 36415; 71045; 80048; 84484; 85007; 85025; 93005 ×3; 99285; 99406; J1885; J2270

== ENCOUNTER 2021-08-13 21:19 | Emergency (ER) | payer MEDICARE, OTHER ==
[~2021-08-13] VITALS: Ht 177.8 cm; Wt 89.4 kg
[~2021-08-13 21:19] MED LIST changes: +IBUP-1957 PO
[2021-08-13 21:59] VITALS: BP 145/73
--- NOTE | 2021-08-13 21:59 | NUR ---
BIBS. L WRIST AND R UPPER ARM ABSCESS X 5 DAYS. PLACED ON MONITOR ALL VSS. MD WAS AT THE BEDSIDE FOR EVAL.
[2021-08-13] MEDS ORDERED: CLINDAMYCIN 600 MG in IV D5W 100 ML IV ONE (22:30)
[2021-08-13] MEDS ORDERED: SULFAMETH/TRIMETH 800/160 MG 1 UDTAB TABLET PO ONE (22:30)
[2021-08-13] MEDS ORDERED: CEFTRIAXONE 1GM BAG (ER ONLY) 1 GM/50 ML PIGGYBACK IV ONE (22:30)
[2021-08-13] MEDS ORDERED: LIDOCAINE 1%-EPI 1:100,000 20 ML VIAL ONE (22:39)
[2021-08-13] MEDS ORDERED: IBUP-1955 PO (23:05)
[2021-08-13] MEDS ORDERED: SULF1TAB48 PO (23:05)
[2021-08-13] MEDS ORDERED: CEPH500T PO (23:05)
[2021-08-13] MEDS ORDERED: CEFTRIAXONE 1 G VIAL ONE (23:07)
[2021-08-13] MEDS ORDERED: LIDOCAINE /MPF 1% VIAL 5 ML VIAL ONE (23:07)
[2021-08-13] MEDS ORDERED: SULFAMETH/TRIMETH 800/160 MG 1 UDTAB TABLET ONE (23:08)
--- NOTE | 2021-08-13 23:43 | NUR ---
Patient discharged to home in stable condition. Written and verbal after care instructions given. Patient verbalizes understanding of instruction. Pt ambulatory with a steady gait
--- NOTE | 2021-08-13 23:43 | NUR ---
Patient discharged to home in stable condition. Written and verbal after care instructions given. Patient verbalizes understanding of instruction.
== END 2021-08-13 23:44 | disposition home or self-care (01) ==
LOC: ER 21:45
DX: L02.414 Cutaneous abscess of left upper limb (principal); I10 Essential (primary) hypertension; F32.9 Major depressive disorder, single episode, unspecified; F41.9 Anxiety disorder, unspecified; F17.200 Nicotine dependence, unspecified, uncomplicated; Z98.890 Other specified postprocedural states; Z88.2 Allergy status to sulfonamides; Z79.899 Other long term (current) drug therapy; Z79.82 Long term (current) use of aspirin
CPT/HCPCS: 10060; 87070; 87077; 96372; 99283; A6403; A6407; J0696; J3490 ×3; J7060

== ENCOUNTER 2022-03-11 03:13 | Emergency (ER) | payer MEDICARE, OTHER ==
[~2022-03-11] VITALS: Ht 175.3 cm; Wt 90.7 kg
[~2022-03-11 03:13] MED LIST changes: +CEPH500T PO; +IBUP-1955 PO; +SULF1TAB48 PO
[2022-03-11 03:22] VITALS: BP 143/81
--- NOTE | 2022-03-11 05:04 | NUR ---
Patient discharged to home in stable condition. Written and verbal after care instructions given. Patient verbalizes understanding of instruction.
== END 2022-03-11 05:19 | disposition home or self-care (01) ==
LOC: ER 03:17
DX: M79.672 Pain in left foot (principal); I10 Essential (primary) hypertension; F32.A Depression, unspecified; F41.9 Anxiety disorder, unspecified; F17.200 Nicotine dependence, unspecified, uncomplicated; Z88.2 Allergy status to sulfonamides; Z79.899 Other long term (current) drug therapy
CPT/HCPCS: 73630-TC

== ENCOUNTER 2022-06-28 21:36 | Emergency (ER) | payer MEDICARE, OTHER ==
[~2022-06-28] VITALS: Ht 177.8 cm; Wt 90.7 kg
[2022-06-28 21:58] VITALS: BP 119/40
--- NOTE | 2022-06-28 21:59 | NUR ---
BIBS FOR C/O BLE EDEMA FOR THE PAST FEW DAYS. PATIENT ALERT AND ORIENTED X3. AMBULATORY WITH NON LABORED BREATHING IN BED 12 ON MONITOR AND POX AWAITING MD SUAREZ.
--- NOTE | 2022-06-28 22:39 | NUR ---
ER CANNING MACHINE OPERATOR AT BEDSIDE
[2022-06-28 22:53] LABS: BASOPHILS % (AUTO) 0.3 % (0.0-2.0); EOSINOPHILS % (AUTO) 4.3 % (0.0-6.0); HEMATOCRIT 33 % (39-51); HEMOGLOBIN 10.6 g/dL (13.5-17.5); LYMPHOCYTES # (AUTO) 1.6 K/uL (0.8-4.8); MEAN CORPUSCULAR HGB CONC 32 g/dl (31.0-36.0); MEAN CORPUSCULAR VOLUME 74 fL (80-96); MONOCYTES # (AUTO) 0.8 K/uL (0.1-1.30); MONOCYTES % (AUTO) 8.5 % (2.0-12.0); NEUTROPHILS # (AUTO) 6.2 K/uL (1.8-8.9); NEUTROPHILS % (AUTO) 68.9 % (43.0-81.0); PLATELET COUNT (AUTO) 322 K/uL (150-450); WHITE BLOOD COUNT (AUTO) 8.9 K/uL (4.3-11.0)
[2022-06-28 23:08] LABS: CALCIUM, SERUM 8.9 mg/dL (8.5-10.1); CARBON DIOXIDE 35 mmol/L (21-32); CHLORIDE 102 mmol/L (98-107); CREATININE 0.8 mg/dL (0.6-1.3); GLUCOSE 113 mg/dL (74-106); SODIUM SERUM 140 mmol/L (136-145); UREA NITROGEN, BLOOD 16 mg/dL (7-18)
[2022-06-28 23:20] LABS: ALANINE AMINOTRANSFERASE 31 U/L (12-78); ALBUMIN 3.2 g/dL (3.4-5.0); ALKALINE PHOSPHATASE 123 U/L (46-116); ASPARTATE AMINOTRANSFERASE 30 U/L (15-37); BILIRUBIN,DIRECT 0.1 mg/dL (0.0-0.2); BILIRUBIN,TOTAL 0.2 mg/dL (0.2-1.0); TOTAL PROTEIN, SERUM 7.6 g/dL (6.4-8.2)
--- NOTE | 2022-06-29 01:18 | NUR ---
CALLED [facility] FOR CXR READ
--- NOTE | 2022-06-29 01:49 | NUR ---
Patient eloped from facility. ER MD notified.
== END 2022-06-29 01:51 | disposition left against medical advice (07) ==
LOC: ER 21:39
DX: R60.0 Localized edema (principal); I10 Essential (primary) hypertension; F32.A Depression, unspecified; F41.9 Anxiety disorder, unspecified; F17.200 Nicotine dependence, unspecified, uncomplicated; Z88.2 Allergy status to sulfonamides; Z79.899 Other long term (current) drug therapy
CPT/HCPCS: 36415; 71045-TC; 80048-TC; 80076-TC; 83880; 84484-TC; 85025-TC